=== PATIENT | female | born 1975 | race Caucasian/White ===

== ENCOUNTER 2019-05-12 18:55 | Inpatient (IN) | payer OTHER ==
[2019-05-12 19:01] VITALS: BMI 31.2
--- NOTE | 2019-05-12 19:01 | PDOC ---
Rapid Medical Evaluation Time Seen by Provider: 05/12/19 18:59 Medical Evaluation: 05/12/19 18:59 I have performed a brief in-person evaluation of this patient. The patient presents with a chief complaint of: heavy menstruation, now anemic, LMP 04/29, no sob or weakness Pertinent physical exam findings: vss, no pallor I have ordered the following: labs, iv The patient will proceed to the ED for further evaluation. 05/12/19 19:01 Discharge Disposition - Diagnosis Anemia Qualifiers: Anemia type: iron deficiency Iron deficiency anemia type: unspecified iron deficiency Qualified Code(s): D50.9 - Iron deficiency anemia, unspecified - Discharge Dispostion Condition at time of disposition: Stable - Referrals - Patient Instructions - Post Discharge Activity
[2019-05-12 20:39] LABS: BASO % 2.2 % (0-2.0); EOS % 3.1 % (0-4.5); HEMATOCRIT 21.5 % (32.4-45.2); LYMPH % 49.3 % (8-40); MCHC 28.6 g/dl (32.0-36.0); MEAN CELL VOLUME 58.8 fl (80-96); MEAN PLT VOLUME 8.7 fl (7.5-11.1); MONO % 5.9 % (3.8-10.2); NEUT % 39.5 % (42.8-82.8); PLATELET COUNT 246 K/MM3 (134-434); RBC 3.65 M/mm3 (3.60-5.2); RDW 20.5 % (11.6-15.6)
--- NOTE | 2019-05-12 20:58 | PDOC ---
History of Present Illness - General Chief Complaint: Revisit, Lab Variance Stated Complaint: SENT BY PCP/LOW HEMOGLOBIN Time Seen by Provider: 05/12/19 18:59 History Source: Patient Exam Limitations: No Limitations Past History - Past Medical History Allergies/Adverse Reactions: Allergies Allergy/AdvReac Type Severity Reaction Status Date / Time No Known Allergies Allergy Verified 05/12/19 19:01 COPD: No - Psycho Social/Smoking Cessation Hx Smoking History: Never smoked *Physical Exam - Vital Signs Last Vital Signs Temp Pulse Resp BP Pulse Ox 99.2 F 75 18 121/67 100 05/12/19 18:58 05/12/19 18:58 05/12/19 18:58 05/12/19 18:58 05/12/19 18:58 - Physical Exam General Appearance: No: Apparent Distress HEENT: positive: Other (no paleness noted) Respiratory/Chest: positive: Lungs Clear, Normal Breath Sounds. negative: Respiratory Distress Cardiovascular: positive: Regular Rhythm, Regular Rate, S1, S2. negative: Murmur Gastrointestinal/Abdominal: positive: Normal Bowel Sounds, Soft. negative: Tender, Distended, Guarding, Rebound Integumentary: positive: Normal Color Neurologic: positive: Alert ED Treatment Course - LABORATORY CBC & Chemistry Diagram: 05/12/19 20:14 05/12/19 20:14 Medical Decision Making - Medical Decision Making 43 y/o F with no sig pmh presents as she had blood work done 05/09 which resulted today showing Hgb of 6 (or 6.5). Was told to come to ER for possible blood transfusion. Patient states has hx of heavy menstrual cycles for years, though is unsure why. LNMP 04/29. Otherwise, menstrual cycles are around 5-6 days and occur once a month. Mentions has been feeling increased fatigue, sob, and lightheadedness over the course of 6 months, getting worse over the past month. Denies fever, abd pain, vomiting, diarrhea, black/bloody stools, other complaints. Mentions she has been told to take Iron but only takes it occasionally. Anemia Plan: Labs, T&S, reassess 05/12/19 20:56 Hgb 6.1 Will transfuse 1 unit for now Obtained consent for transfusion from patient Plan to admit patient 05/12/19 22:30 Discharge - Discharge Information Problems reviewed: Yes Clinical Impression/Diagnosis: Anemia Qualifiers: Anemia type: iron deficiency Iron deficiency anemia type: unspecified iron deficiency Qualified Code(s): D50.9 - Iron deficiency anemia, unspecified Condition: Stable - Admission Yes - Additional Discharge Information Prescription Drug Monitoring Program (I-STOP) results: I-STOP not reviewed - Follow up/Referral Referrals: Jesi Stauffer MD [Primary Care Provider] - - Patient Discharge Instructions - Post Discharge Activity
[2019-05-12 21:03] LABS: ALBUMIN 3.8 g/dl (3.4-5.0); BILIRUBIN,TOTAL 0.2 mg/dL (0.2-1); BLOOD UREA NITROGEN 9.9 mg/dL (7-18); CREATININE 0.8 mg/dL (0.55-1.3); POTASSIUM 3.9 mmol/L (3.5-5.1); TOT PROT 6.9 g/dl (6.4-8.2)
[2019-05-12 21:30] LABS: MCH 16.8 pg (25.7-33.7)
[2019-05-12 21:32] LABS: HEMOGLOBIN 6.1 GM/dL (10.7-15.3)
--- NOTE | 2019-05-12 21:54 | PDOC ---
*Physical Exam - Vital Signs Last Vital Signs Temp Pulse Resp BP Pulse Ox 99.2 F 75 18 121/67 100 05/12/19 18:58 05/12/19 18:58 05/12/19 18:58 05/12/19 18:58 05/12/19 18:58 ED Treatment Course - LABORATORY CBC & Chemistry Diagram: 05/12/19 20:14 05/12/19 20:14 - ADDITIONAL ORDERS Additional order review: Laboratory Results 05/12/19 05/12/19 20:14 20:14 Sodium 142 Potassium 3.9 Chloride 110 H Carbon Dioxide 27 Anion Gap 4 L BUN 9.9 Creatinine 0.8 Est GFR (CKD-EPI)AfAm 103.19 Est GFR (CKD-EPI)NonAf 89.04 Random Glucose 133 H Calcium 9.0 Total Bilirubin 0.2 AST 17 ALT 26 Alkaline Phosphatase 35 L Total Protein 6.9 Albumin 3.8 Blood Type A POSITIVE Antibody Screen Negative Crossmatch See Detail 05/12/19 20:14 RBC 3.65 MCV 58.8 L MCHC 28.6 L RDW 20.5 H MPV 8.7 Neutrophils % 39.5 L Lymphocytes % 49.3 H Monocytes % 5.9 Eosinophils % 3.1 Basophils % 2.2 H Medical Decision Making - Medical Decision Making 05/12/19 21:53 Case reviewed, agree with assessment and plan Discharge - Discharge Information Problems reviewed: Yes Clinical Impression/Diagnosis: Anemia Qualifiers: Anemia type: iron deficiency Iron deficiency anemia type: unspecified iron deficiency Qualified Code(s): D50.9 - Iron deficiency anemia, unspecified Condition: Stable - Follow up/Referral - Patient Discharge Instructions - Post Discharge Activity
[2019-05-12 23:36] LABS: ANISOCYTOSIS 2+; MACROCYTOSIS 0; PLATELET ESTIMATE NORMAL
--- NOTE | 2019-05-13 03:39 | HP ---
CHIEF COMPLAINT:lightheadedness, fatigue and shortness of breath PCP:Dr. Burger HISTORY OF PRESENT ILLNESS: This is a 43 year old female with no past medical history. She presents as she had blood work done on 05/09 which resulted today showing Hgb of 6 . She was told to come to ER for possible blood transfusion. Patient states she has a history of heavy menstrual cycles for years She reported she has been feeling increased fatigue, shortness of breath, and lightheadedness over the course of 6 months, getting worse over the past month. She denied any chest pain. ER course was notable for: (1)Severe anemia hgb 6.1/hematocrit 21.5. Patient was ordered 1U PRBC's Recent Travel: none PAST MEDICAL HISTORY: none PAST SURGICAL HISTORY: none Social History: Smoking:no Alcohol:no Drugs: no Allergies No Known Allergies Allergy (Verified 05/12/19 19:01) HOME MEDICATIONS: Home Medications Medication Instructions Recorded NK [No Known Home Medication] 05/12/19 REVIEW OF SYSTEMS CONSTITUTIONAL: Absent: fever, chills, diaphoresis, generalized weakness, malaise, loss of appetite, weight change, fatigue HEENT: Absent: rhinorrhea, nasal congestion, throat pain, throat swelling, difficulty swallowing, mouth swelling, ear pain, eye pain, visual changes CARDIOVASCULAR: Absent: chest pain, syncope, palpitations, irregular heart rate, lightheadedness , peripheral edema, dizziness RESPIRATORY: Absent: cough, shortness of breath, dyspnea with exertion, orthopnea, wheezing, stridor, hemoptysis GASTROINTESTINAL: Absent: abdominal pain, abdominal distension, nausea, vomiting, diarrhea, constipation, melena, hematochezia GENITOURINARY: Absent: dysuria, frequency, urgency, hesitancy, hematuria, flank pain, genital pain MUSCULOSKELETAL: Absent: myalgia, arthralgia, joint swelling, back pain, neck pain SKIN: Absent: rash, itching, pallor HEMATOLOGIC/IMMUNOLOGIC: Absent: easy bleeding, easy bruising, lymphadenopathy, frequent infections, heavy menstrual bleeding ENDOCRINE: Absent: unexplained weight gain, unexplained weight loss, heat intolerance, cold intolerance NEUROLOGIC: Absent: headache, focal weakness or paresthesias, dizziness, unsteady gait, seizure, mental status changes, bladder or bowel incontinence PSYCHIATRIC: Absent: anxiety, depression, suicidal or homicidal ideation, hallucinations. PHYSICAL EXAMINATION Vital Signs - 24 hr 05/12/19 18:58 Temperature 99.2 F Pulse Rate 75 Respiratory 18 Rate Blood Pressure 121/67 O2 Sat by Pulse 100 Oximetry (%) GENERAL: awake, alert, and fully oriented no acute distress HEAD: normal EYES: pupils equal, round and reactive to light, extraocular movements intact EARS, NOSE, THROAT: ears normal, nares patent, oropharynx clear without exudates NECK: normal range of motion LUNGS: breath sounds equal and clear to auscultation bilaterally no wheezes no crackles no accessory muscle use HEART: regular rate and rhythm normal S1 and S2 without murmur ABDOMEN: soft nontender not distended, normoactive bowel sounds MUSCULOSKELETAL: normal range of motion at all joints UPPER EXTREMITIES: 2+ pulses warm well-perfused no cyanosis LOWER EXTREMITIES: 2+ pulses warm well-perfused NEUROLOGICAL: no neuro deficits PSYCHIATRIC: cooperative good eye contact appropriate mood and affect SKIN: warm dry normal turgor no rashes or lesions noted normal capillary refill Laboratory Results - last 24 hr 05/12/19 05/12/19 05/12/19 20:14 20:14 20:14 WBC 3.0 L RBC 3.65 Hgb 6.1 L* Hct 21.5 L MCV 58.8 L MCH 16.8 L MCHC 28.6 L RDW 20.5 H Plt Count 246 MPV 8.7 Absolute Neuts (auto) 1.2 L Neutrophils % 39.5 L Lymphocytes % 49.3 H Monocytes % 5.9 Eosinophils % 3.1 Basophils % 2.2 H Nucleated RBC % 0 Hypochromia 3+ Platelet Estimate Normal Polychromasia 1+ Poikilocytosis 3+ Anisocytosis 2+ Microcytosis 2+ Macrocytosis 0 Fragmented RBCs 1+ Sodium 142 Potassium 3.9 Chloride 110 H Carbon Dioxide 27 Anion Gap 4 L BUN 9.9 Creatinine 0.8 Est GFR (CKD-EPI)AfAm 103.19 Est GFR (CKD-EPI)NonAf 89.04 Random Glucose 133 H Calcium 9.0 Total Bilirubin 0.2 AST 17 ALT 26 Alkaline Phosphatase 35 L Total Protein 6.9 Albumin 3.8 Blood Type A POSITIVE Antibody Screen Negative Crossmatch See Detail 05/12/19 05/12/19 23:00 23:00 WBC RBC Hgb Hct MCV MCH MCHC RDW Plt Count MPV Absolute Neuts (auto) Neutrophils % Lymphocytes % Monocytes % Eosinophils % Basophils % Nucleated RBC % Hypochromia Platelet Estimate Polychromasia Poikilocytosis Anisocytosis Microcytosis Macrocytosis Fragmented RBCs Sodium Potassium Chloride Carbon Dioxide Anion Gap BUN Creatinine Est GFR (CKD-EPI)AfAm Est GFR (CKD-EPI)NonAf Random Glucose Calcium Total Bilirubin AST ALT Alkaline Phosphatase Total Protein Albumin Blood Type A POSITIVE Cancelled Antibody Screen Cancelled Crossmatch ASSESSMENT/PLAN: Mrs. Ford is a 43 year old female with no past medical history. She presented as she had blood work done on 05/09 which resulted today showing Hgb of 6 In the ER hgb is 6.1 and hematocrit 21.5.Patient was ordered 1U PRBC's. 1. Severe Iron Deficiency Anemia Symptomatic with SOB,dizziness and fatigue, no chest pain,no syncopy, normotensive, no tachycardia, no murmurs on clinical exam Blood loss likely secondary to heavy menstrual periods S/P 1 U PRBC's, repeat CBC post blood transfusion check iron studies check stool guaic consider GI evaluation in am bedrest FEN Continue with NS at 60cc/hr Visit type - Emergency Visit Emergency Visit: Yes ED Registration Date: 05/12/19 Care time: The patient presented to the Emergency Department on the above date and was hospitalized for further evaluation of their emergent condition. - New Patient This patient is new to me today: Yes Date on this admission: 05/13/19 - Critical Care Critical Care patient: No
[2019-05-13] MEDS ORDERED: SODIUM CHLORIDE 1,000 ML IV SCH (04:00)
[2019-05-13 04:21] LABS: MCHC 28.8 g/dl (32.0-36.0); MEAN PLT VOLUME 8.9 fl (7.5-11.1); PLATELET COUNT 233 K/MM3 (134-434); RDW 22.3 % (11.6-15.6); WHITE BLOOD COUNT 3.5 K/mm3 (4.0-10.0)
[2019-05-13 04:24] LABS: MCH 17.9 pg (25.7-33.7)
[2019-05-13 04:26] LABS: HEMATOCRIT 24.2 % (32.4-45.2)
[2019-05-13 04:28] LABS: MEAN CELL VOLUME 62.1 fl (80-96)
[2019-05-13 09:33] LABS: BASO % 2.2 % (0-2.0); EOS % 3.4 % (0-4.5); HEMATOCRIT 27.2 % (32.4-45.2); HEMOGLOBIN 8.3 GM/dL (10.7-15.3); LYMPH % 43.4 % (8-40); MCHC 30.5 g/dl (32.0-36.0); MEAN CELL VOLUME 63.6 fl (80-96); MEAN PLT VOLUME 8.5 fl (7.5-11.1); MONO % 8.4 % (3.8-10.2); NEUT % 42.6 % (42.8-82.8); PLATELET COUNT 225 K/MM3 (134-434); RBC 4.27 M/mm3 (3.60-5.2); RDW 25.5 % (11.6-15.6); WHITE BLOOD COUNT 3.1 K/mm3 (4.0-10.0)
[2019-05-13 09:37] LABS: MCH 19.4 pg (25.7-33.7)
[2019-05-13 09:48] LABS: BLOOD UREA NITROGEN 11.5 mg/dL (7-18); CALCIUM 8.4 mg/dL (8.5-10.1); CREATININE 0.4 mg/dL (0.55-1.3); POTASSIUM 3.9 mmol/L (3.5-5.1)
[2019-05-13 10:52] LABS: ANISOCYTOSIS 1+; MACROCYTOSIS 0; OVALOCYTE 1+; PLATELET ESTIMATE NORMAL
--- NOTE | 2019-05-13 11:28 | DS ---
Physical Examination Vital Signs: Vital Signs Temperature 98.2 F 05/13/19 08:30 Pulse Rate 69 05/13/19 08:30 Respiratory Rate 18 05/13/19 08:30 Blood Pressure 118/63 05/13/19 08:30 O2 Sat by Pulse Oximetry (%) 99 05/13/19 08:30 Findings/Remarks: Laboratory Results - last 24 hr 05/12/19 05/12/19 05/12/19 20:14 20:14 20:14 WBC 3.0 L RBC 3.65 Hgb 6.1 L* Hct 21.5 L MCV 58.8 L MCH 16.8 L MCHC 28.6 L RDW 20.5 H Plt Count 246 MPV 8.7 Absolute Neuts (auto) 1.2 L Neutrophils % 39.5 L Neutrophils % (Manual) Band Neutrophils % Lymphocytes % 49.3 H Lymphocytes % (Manual) Monocytes % 5.9 Monocytes % (Manual) Eosinophils % 3.1 Eosinophils % (Manual) Basophils % 2.2 H Basophils % (Manual) Myelocytes % (Man) Promyelocytes % (Man) Blast Cells % (Manual) Nucleated RBC % 0 Metamyelocytes Hypochromia 3+ Platelet Estimate Normal Polychromasia 1+ Poikilocytosis 3+ Anisocytosis 2+ Microcytosis 2+ Macrocytosis 0 Ovalocytes Fragmented RBCs 1+ Sodium 142 Potassium 3.9 Chloride 110 H Carbon Dioxide 27 Anion Gap 4 L BUN 9.9 Creatinine 0.8 Est GFR (CKD-EPI)AfAm 103.19 Est GFR (CKD-EPI)NonAf 89.04 Random Glucose 133 H Calcium 9.0 Total Bilirubin 0.2 AST 17 ALT 26 Alkaline Phosphatase 35 L Total Protein 6.9 Albumin 3.8 Blood Type A POSITIVE Antibody Screen Negative Crossmatch See Detail 05/12/19 05/12/19 05/13/19 23:00 23:00 04:15 WBC 3.5 L RBC 3.90 Hgb 7.0 L Hct 24.2 L MCV 62.1 L MCH 17.9 L MCHC 28.8 L RDW 22.3 H Plt Count 233 MPV 8.9 Absolute Neuts (auto) Neutrophils % Neutrophils % (Manual) Band Neutrophils % Lymphocytes % Lymphocytes % (Manual) Monocytes % Monocytes % (Manual) Eosinophils % Eosinophils % (Manual) Basophils % Basophils % (Manual) Myelocytes % (Man) Promyelocytes % (Man) Blast Cells % (Manual) Nucleated RBC % Metamyelocytes Hypochromia Platelet Estimate Polychromasia Poikilocytosis Anisocytosis Microcytosis Macrocytosis Ovalocytes Fragmented RBCs Sodium Potassium Chloride Carbon Dioxide Anion Gap BUN Creatinine Est GFR (CKD-EPI)AfAm Est GFR (CKD-EPI)NonAf Random Glucose Calcium Total Bilirubin AST ALT Alkaline Phosphatase Total Protein Albumin Blood Type A POSITIVE Cancelled Antibody Screen Cancelled Crossmatch 05/13/19 05/13/19 08:52 08:52 WBC 3.1 L RBC 4.27 Hgb 8.3 L Hct 27.2 L MCV 63.6 L MCH 19.4 L MCHC 30.5 L RDW 25.5 H Plt Count 225 MPV 8.5 Absolute Neuts (auto) 1.3 L Neutrophils % 42.6 L Neutrophils % (Manual) 45.5 Band Neutrophils % 0.0 Lymphocytes % 43.4 H Lymphocytes % (Manual) 44.5 H Monocytes % 8.4 Monocytes % (Manual) 1 L Eosinophils % 3.4 Eosinophils % (Manual) 4.0 Basophils % 2.2 H Basophils % (Manual) 2.0 Myelocytes % (Man) 0 Promyelocytes % (Man) 0 Blast Cells % (Manual) 0 Nucleated RBC % 0 Metamyelocytes 1 Hypochromia 2+ Platelet Estimate Normal Polychromasia 1+ Poikilocytosis 0 Anisocytosis 1+ Microcytosis 2+ Macrocytosis 0 Ovalocytes 1+ Fragmented RBCs 1+ Sodium 140 Potassium 3.9 Chloride 113 H Carbon Dioxide 21 Anion Gap 6 L BUN 11.5 Creatinine 0.4 L Est GFR (CKD-EPI)AfAm 145.79 Est GFR (CKD-EPI)NonAf 125.79 Random Glucose 90 Calcium 8.4 L Total Bilirubin AST ALT Alkaline Phosphatase Total Protein Albumin Blood Type Antibody Screen Crossmatch Home Medication List Medication Instructions Recorded Confirmed Type NK [No Known Home Medication] 05/12/19 05/12/19 History Active Medications Generic Name Dose Route Start Last Admin Trade Name Freq PRN Reason Stop Dose Admin Sodium Chloride 1,000 mls @ 60 mls/hr 05/13/19 04:00 05/13/19 05:23 Normal Saline - IV 60 mls/hr ASDIR FAISAL Administration Constitutional: Yes: No Distress, Calm Eyes: Yes: Conjunctiva Clear HENT: Yes: Atraumatic Cardiovascular: Yes: Regular Rate and Rhythm Respiratory: Yes: Regular, CTA Bilaterally Gastrointestinal: Yes: Normal Bowel Sounds, Soft, Tenderness (R side of abdomen) Musculoskeletal: Yes: WNL Extremities: Yes: WNL Edema: No Neurological: Yes: Alert, Oriented Psychiatric: Yes: Alert, Oriented Labs: CBC, BMP 05/13/19 08:52 05/13/19 08:52 Discharge Summary Problems reviewed: Yes Reason For Visit: ANEMIA Current Active Problems Anemia (Acute) Hospital Course: This is a 43 year old female with no past medical history. She presents as she had blood work done on 05/09 which resulted today showing Hgb of 6 . She was told to come to ER for possible blood transfusion. Patient states she has a history of heavy menstrual cycles for years She reported she has been feeling increased fatigue, shortness of breath, and lightheadedness over the course of 6 months, getting worse over the past month. She denied any chest pain. Patient is s/p 2U PRBC and uptrend in Hg to 8.3. Last LMP 05/09/19. States feeling mild dizziness when sit up. Denies chest pain, palpitations. Will order Pelvic US to rule out IMMUNOCHEMIST cause of anemia. Iron Panel pending results. instructed to f/u with pmd on Thursday to have CBC drawn to monitor Hg level. Given referral for IMMUNOCHEMIST due to history of Menorrhagia. Condition: Stable - Instructions Diet, Activity, Other Instructions: Follow up with PMD on Thursday for Repeat CBC to check HG Follow up with IMMUNOCHEMIST Dr Levine for f/u of Menorrhagia return to ER if develop dizziness, chest pain, SOB, heavy bleeding Referrals: Jesi Stauffer MD [Primary Care Provider] - Rekha Levine MD [Staff Physician] - Disposition: HOME - Home Medications Comprehensive Discharge Medication List: Ambulatory Orders NK [No Known Home Medication] 05/12/19
[2019-05-13 13:44] VITALS: BP 115/72; PULSE 74; TEMP 98.6
[2019-05-13 13:52] LABS: HEMATOCRIT 27.3 % (32.4-45.2); HEMOGLOBIN 8.4 GM/dL (10.7-15.3); MCHC 30.7 g/dl (32.0-36.0); MEAN CELL VOLUME 63.7 fl (80-96); MEAN PLT VOLUME 8.7 fl (7.5-11.1); PLATELET COUNT 236 K/MM3 (134-434); RBC 4.29 M/mm3 (3.60-5.2); WHITE BLOOD COUNT 3.3 K/mm3 (4.0-10.0)
[2019-05-13 14:04] LABS: MCH 19.5 pg (25.7-33.7)
[2019-05-13 14:24] LABS: BLOOD UREA NITROGEN 9.3 mg/dL (7-18); CALCIUM 8.9 mg/dL (8.5-10.1); CREATININE 0.6 mg/dL (0.55-1.3); POTASSIUM 3.8 mmol/L (3.5-5.1)
== END 2019-05-13 13:50 | disposition home or self-care (01) | DRG 663 ==
LOC: JER 18:55 → JERBED 22:31 → OBSVTOIN 05-13 06:54
PROVIDERS: ADMIT Family Medicine; ATTEND Family Medicine
PROC: 30233N1 Transfusion of Nonautologous Red Blood Cells into Peripheral Vein, Percutaneous Approach (ICD-10-PCS; principal; 2019-05-13)
DX: D50.9 Iron deficiency anemia, unspecified (principal); R06.02 Shortness of breath; R42 Dizziness and giddiness; R53.83 Other fatigue; N92.0 Excessive and frequent menstruation with regular cycle
CPT/HCPCS: 36415; 36430; 36511; 76830-TC; 76856-TC; 80048; 80053; 83540; 83550; 85025; 85027; 86850; 86900; 86901; 86922; 99284-25; G0378; J7030; P9038; P9058

== ENCOUNTER 2021-01-15 07:54 | Inpatient (IN) | payer OTHER ==
[2021-01-15] MEDS ORDERED: SODIUM CHLORIDE 1,000 ML IV STA (08:19)
[2021-01-15] MEDS ORDERED: METHOCARBAMOL 500 MG TABLET PO ONE (08:19)
[2021-01-15] MEDS ORDERED: KETOROLAC TROMETHAMINE 30 MG/1 ML VIAL IVPUSH ONE (08:19)
[2021-01-15] MEDS ORDERED: KETOROLAC TROMETHAMINE 30 MG/1 ML VIAL ONE (08:30)
[2021-01-15] MEDS ORDERED: METHOCARBAMOL 500 MG TABLET ONE (08:30)
[2021-01-15 09:05] LABS: EPI CELLS 32 /uL (0-25.1); HYALINE CASTS 4 /uL (0-3.1); PH,URINE 5.5 (5.0-8.0); URINE APPEARANCE CLOUDY; URINE BACTERIA 2822 /uL (0-1359); URINE BILIRUBIN NEGATIVE (NEGATIVE); URINE COLOR YELLOW; URINE GLUCOSE (UA) NEGATIVE (NEGATIVE); URINE KETONE 1+ (NEGATIVE); URINE LEUK ESTERASE NEGATIVE (NEGATIVE); URINE NITRITE NEGATIVE (NEGATIVE); URINE PROTEIN 1+ (NEGATIVE); URINE RBC 10 /uL (0-23.9); URINE UROBILINOGEN 0.2 mg/dL (0.2-1.0); URINE WBC 42 /uL (0-25.8)
[2021-01-15 09:06] LABS: HCG,QUALITATIVE URINE Negative
[2021-01-15 09:12] LABS: BASO % 0.6 % (0-2.0); EOS % 0.2 % (0-4.5); HEMATOCRIT 34.5 % (32.4-45.2); HEMOGLOBIN 11.4 GM/dL (10.7-15.3); MCH 25.8 pg (25.7-33.7); MEAN PLT VOLUME 8.9 fl (7.5-11.1); MONO % 7.1 % (3.8-10.2); NEUT % 57.1 % (42.8-82.8); PLATELET COUNT 119 10^3/uL (134-434); RBC 4.43 M/mm3 (3.60-5.2); RDW 15.1 % (11.6-15.6)
[2021-01-15 09:27] LABS: CALCIUM 8.2 mg/dL (8.5-10.1)
[2021-01-15 09:28] LABS: ALBUMIN 3.9 g/dl (3.4-5.0)
[2021-01-15 09:29] LABS: WHITE BLOOD COUNT 1.6 K/mm3 (4.0-10.0)
[2021-01-15 09:31] LABS: CREATININE 0.6 mg/dL (0.55-1.3)
[2021-01-15 09:32] LABS: BILIRUBIN,TOTAL 0.2 mg/dL (0.2-1)
[2021-01-15 09:33] LABS: TOT PROT 7.3 g/dl (6.4-8.2)
[2021-01-15] MEDS ORDERED: morphine CARPU-JECT 2 MG/1 ML DISP.SYRIN IVPUSH ONE ×3 (09:42→22:41)
[2021-01-15] MEDS ORDERED: MORPHINE SULFATE 2 MG/ML VIAL ONE ×4 (09:43→22:43)
[2021-01-15 10:58] LABS: ANISOCYTOSIS 1+; MACROCYTOSIS 0; PLATELET ESTIMATE DECREASED
[2021-01-15 11:48] LABS: HEMATOCRIT 32.5 % (32.4-45.2); HEMOGLOBIN 10.7 GM/dL (10.7-15.3); MCHC 32.9 g/dl (32.0-36.0); MEAN CELL VOLUME 78.9 fl (80-96); MEAN PLT VOLUME 8.9 fl (7.5-11.1); PLATELET COUNT 110 10^3/uL (134-434); RBC 4.11 M/mm3 (3.60-5.2); RDW 15.1 % (11.6-15.6)
[2021-01-15 11:55] LABS: WHITE BLOOD COUNT 1.7 K/mm3 (4.0-10.0)
[2021-01-15 13:26] LABS: ANISOCYTOSIS 1+; MACROCYTOSIS 0; OVALOCYTE 1+; PLATELET ESTIMATE DECREASED
[2021-01-15 14:31] LABS: HIV INTERPRETATION NEGATIVE (NEGATIVE)
[2021-01-15] MEDS ORDERED: LACTATED RINGERS SOLUTION 1,000 ML/1,000 ML INFUS.BAG IV SCH (15:00)
[2021-01-15] MEDS ORDERED: CEFTRIAXONE 1 GM in DEXTROSE 5%-WATER - 100 ML IVPB ONE (15:39)
[2021-01-15] MEDS ORDERED: CEFTRIAXONE 1 GM/50 ML BAG ONE (17:05)
[2021-01-15] MEDS ORDERED: D5-1/2NS+20 MEQ KCL - 20 MEQ/1,000 ML INFUS.BAG IV SCH (17:15)
[2021-01-15] MEDS ORDERED: guaiFENesin/CODEINE 10 ML UNIT-DOSE CUPS PO ONE (20:21)
[2021-01-15] MEDS ORDERED: guaiFENesin/CODEINE 5 ML UNIT-DOSE CUPS PO ONE (20:41)
[2021-01-15] MEDS ORDERED: MORPHINE SULFATE 2 MG/ML VIAL IVPUSH PRN (22:14)
[2021-01-15] MEDS ORDERED: MORPHINE SULFATE 2 MG/ML VIAL IVPUSH ONE (22:41)
[2021-01-16] MEDS ORDERED: ACETAMINOPHEN INJECTION 100 ML IVPB ONE (00:22)
[2021-01-16] MEDS: ACETAMINOPHEN 1000 MG/100 ML VIAL (NON FORMULARY) IVPB PRN (00:27)
[2021-01-16 02:51] VITALS: BMI 32.6
[2021-01-16 08:53] LABS: HEMATOCRIT 32.2 % (32.4-45.2); HEMOGLOBIN 10.7 GM/dL (10.7-15.3); MCHC 33.4 g/dl (32.0-36.0); MEAN CELL VOLUME 77.8 fl (80-96); PLATELET COUNT 114 10^3/uL (134-434); RBC 4.14 M/mm3 (3.60-5.2); RDW 15.1 % (11.6-15.6)
[2021-01-16 09:05] LABS: WHITE BLOOD COUNT 1.4 K/mm3 (4.0-10.0)
[2021-01-16 09:25] LABS: BLOOD UREA NITROGEN 8.8 mg/dL (7-18); CALCIUM 8.1 mg/dL (8.5-10.1)
[2021-01-16 09:28] LABS: CREATININE 0.4 mg/dL (0.55-1.3)
[2021-01-16 09:29] LABS: TOT PROT 6.5 g/dl (6.4-8.2)
[2021-01-16 09:30] LABS: BILIRUBIN,TOTAL 0.2 mg/dL (0.2-1)
[2021-01-16 09:38] LABS: ALBUMIN 3.4 g/dl (3.4-5.0)
[2021-01-16] MEDS ORDERED: MORPHINE SULFATE 2 MG/ML VIAL IVPUSH PRN (09:39)
[2021-01-16] MEDS ORDERED: MECLIZINE HCL 12.5 MG TABLET PO PRN (09:39)
[2021-01-16] MEDS ORDERED: ACETAMINOPHEN 1000 MG/100 ML VIAL (NON FORMULARY) IVPB PRN (09:39)
[2021-01-16] MEDS ORDERED: ALBUTEROL SO4 HFA INHALER IH PRN (09:46)
[2021-01-16 10:00] LABS: ANISOCYTOSIS 0; HELMET CELLS 0; HOWELL-JOLLY BODIES 0; MACROCYTOSIS 0; OVALOCYTE 0; PLATELET ESTIMATE DECREASED; ROULEAU 0; SICKELED CELLS 0; TARGET CELLS 0; TEAR DROP CELLS 0; TOXIC GRANULATION 0
[2021-01-16] MEDS ORDERED: DEXTROSE 5%-WATER - 50 ML IVPB ONE (10:39)
[2021-01-16] MEDS ORDERED: cefTRIAXone SODIUM 1 GM VIAL ONE (10:39)
[2021-01-16] MEDS: ENOXAPARIN NA (PORCINE) 40 MG/0.4 ML DISP.SYRIN SQ SCH (10:41)
[2021-01-16] MEDS: CEFTRIAXONE 1 GM in DEXTROSE 5%-WATER - 50 ML IVPB SCH (10:42)
[2021-01-16 13:20] LABS: PH,URINE 6.5 (5.0-8.0); URINE APPEARANCE CLEAR; URINE BILIRUBIN NEGATIVE (NEGATIVE); URINE COLOR YELLOW; URINE GLUCOSE (UA) NEGATIVE (NEGATIVE); URINE KETONE NEGATIVE (NEGATIVE); URINE LEUK ESTERASE NEGATIVE (NEGATIVE); URINE NITRITE NEGATIVE (NEGATIVE); URINE PROTEIN NEGATIVE (NEGATIVE); URINE UROBILINOGEN 0.2 mg/dL (0.2-1.0)
[2021-01-16] MEDS ORDERED: CASIRIVIMAB/IMDEVIMAB 10 ML in SODIUM CHLORIDE 100 ML IVPB ONE (17:00)
[2021-01-16] MEDS ORDERED: IBUPROFEN 400 MG TABLET (FP) PO PRN (17:59)
[2021-01-16] MEDS ORDERED: guaiFENesin 200 MG/10 ML 10 ML UNIT-DOSE CUPS PO PRN (17:59)
[2021-01-16] MEDS: MULTIVITAMINS (DAILY MVI) TABLET (FP) PO SCH (19:45)
[2021-01-16] MEDS ORDERED: METHOCARBAMOL 500 MG TABLET PO ONE (23:30)
[2021-01-16] MEDS ORDERED: ONDANSETRON 4 MG/2 ML VIAL IVPUSH ONE (23:52)
[2021-01-16] MEDS ORDERED: ONDANSETRON 4 MG/2 ML VIAL ONE (23:55)
[2021-01-17] MEDS: ACETAMINOPHEN 1000 MG/100 ML VIAL (NON FORMULARY) IVPB PRN (00:12)
[2021-01-17] MEDS ORDERED: ONDANSETRON 4 MG/2 ML VIAL IVPUSH ONE (06:31)
[2021-01-17] MEDS ORDERED: ACETAMINOPHEN 325 MG TABLET (FP) PO ONE (06:31)
[2021-01-17 08:56] LABS: BASO % 0.2 % (0-2.0); EOS % 0.1 % (0-4.5); HEMATOCRIT 33.6 % (32.4-45.2); HEMOGLOBIN 11.1 GM/dL (10.7-15.3); LYMPH % 31.1 % (8-40); MCH 25.9 pg (25.7-33.7); MCHC 33.2 g/dl (32.0-36.0); MEAN CELL VOLUME 77.9 fl (80-96); MEAN PLT VOLUME 9.4 fl (7.5-11.1); MONO % 6.9 % (3.8-10.2); NEUT % 61.7 % (42.8-82.8); PLATELET COUNT 126 10^3/uL (134-434); RBC 4.31 M/mm3 (3.60-5.2); RDW 15.3 % (11.6-15.6); WHITE BLOOD COUNT 2.2 K/mm3 (4.0-10.0)
[2021-01-17 09:04] LABS: INR 1.1 (0.83-1.09); PROTHROMBIN TIME (PATIENT) 13.5 SEC (9.7-13.0)
[2021-01-17 09:06] LABS: ACTIVATED PTT 31.2 SECONDS (25.2-36.5)
[2021-01-17 09:21] LABS: CALCIUM 8.3 mg/dL (8.5-10.1)
[2021-01-17 09:22] LABS: BLOOD UREA NITROGEN 8.9 mg/dL (7-18)
[2021-01-17 09:26] LABS: BILIRUBIN,TOTAL 0.5 mg/dL (0.2-1); CREATININE 0.5 mg/dL (0.55-1.3)
[2021-01-17 09:27] LABS: TOT PROT 6.8 g/dl (6.4-8.2)
[2021-01-17 09:30] LABS: ALBUMIN 3.5 g/dl (3.4-5.0)
[2021-01-17] MEDS ORDERED: DEXTROSE 5%-WATER - 50 ML IVPB ONE (09:38)
[2021-01-17] MEDS ORDERED: cefTRIAXone SODIUM 1 GM VIAL ONE (09:38)
[2021-01-17] MEDS: ENOXAPARIN NA (PORCINE) 40 MG/0.4 ML DISP.SYRIN SQ SCH (09:42)
[2021-01-17] MEDS: CEFTRIAXONE 1 GM in DEXTROSE 5%-WATER - 50 ML IVPB SCH (09:42)
[2021-01-17] MEDS: MULTIVITAMINS (DAILY MVI) TABLET (FP) PO SCH (09:42)
[2021-01-17] MEDS ORDERED: ACETAMINOPHEN/CAFFEINE/BUTALBITAL 1 TAB PO ONE (11:57)
[2021-01-17 16:35] VITALS: BP 126/79; PULSE 89; TEMP 97.9
[2021-01-22 15:07] LABS: BABESIA MICROTI ANTIBODY IGG <1:10 (Neg:<1:10); BABESIA MICROTI ANTIBODY IGM <1:10 (Neg:<1:10)
== END 2021-01-17 16:30 | disposition home or self-care (01) | DRG 137 ==
LOC: JER 07:54 → JERBED 13:21 → J8W 01-16 02:27 → OBSVTOIN 01-16 11:53
PROVIDERS: ADMIT Family Medicine; ATTEND Internal Medicine
DX: U07.1 COVID-19 (principal); J12.82 Pneumonia due to coronavirus disease 2019; N39.0 Urinary tract infection, site not specified; D70.9 Neutropenia, unspecified; M54.5 Low back pain; M79.10 Myalgia, unspecified site; R50.9 Fever, unspecified; M54.10 Radiculopathy, site unspecified; N83.209 Unspecified ovarian cyst, unspecified side; R16.1 Splenomegaly, not elsewhere classified; M48.00 Spinal stenosis, site unspecified; N92.1 Excessive and frequent menstruation with irregular cycle
CPT/HCPCS: 36415; 71045-TC-FY; 72131-TC; 74177-TC; 76775-TC; 80053; 81003; 82728; 83540; 83550; 83615; 83735; 84703; 85025; 85045; 85379; 85610; 85730; 86140; 86618; 86753; 87040; 87086; 87207; 87389; 87804; 93005; 93010; 99285-25; C9803; G0378; J0131; M0243; Q0240; Q0243; Q9967; U0003; U0005